=== PATIENT | female | born 1995 | race Asian ===

== ENCOUNTER 2023-05-13 06:16 | Inpatient (IN) | payer OTHER ==
[2023-05-13] MEDS ORDERED: CITRIC ACID/SODIUM CITRATE 30 ML UNIT-DOSE CUP PO ONE (06:45)
[2023-05-13] MEDS ORDERED: ELECTROLYTE-148 SOLN 500 ML IV ONE ×2 (06:45→08:18)
[2023-05-13 07:01] VITALS: BMI 26.9
[2023-05-13] MEDS ORDERED: ONDANSETRON 4 MG/2 ML VIAL IVPUSH PRN (07:43)
[2023-05-13] MEDS ORDERED: ACETAMINOPHEN 325 MG TABLET (FP) PO PRN ×2 (07:43→09:08)
[2023-05-13] MEDS ORDERED: morphine SULFATE/PF 1 MG/2 ML (2cc Syringe - QUVA) EP ONE (07:43)
[2023-05-13] MEDS ORDERED: ELECTROLYTE-148 SOLN 1,000 ML IV SCH ×2 (07:45→08:30)
[2023-05-13] MEDS ORDERED: ceFAZolin SODIUM 1 GM VIAL ONE (07:50)
[2023-05-13] MEDS ORDERED: SODIUM CHLORIDE 0.9% P/F 10 ML VIAL IJ ONE (07:50)
[2023-05-13] MEDS ORDERED: OXYTOCIN 10 UNITS/ML VIAL ONE ×2 (08:26→08:32)
[2023-05-13] MEDS ORDERED: ONDANSETRON 4 MG/2 ML VIAL ONE (08:34)
[2023-05-13] MEDS ORDERED: IBUPROFEN 600 MG TABLET (FP) PO PRN (09:08)
[2023-05-13 09:13] LABS: CORD BASE EXCESS -0.8 mmol/L (0-2); CORD PCO2 45.6 mmHg (30-78); CORD pH 7.357 (7.14-7.44)
[2023-05-13] MEDS: OXYTOCIN 20 UNITS in 0.9% NS 20 UNIT/1,000 ML INFUS.BAG IV SCH ×2 (09:14→17:35)
[2023-05-13 09:17] LABS: CORD HCO3 25.9 mmHg (20-29); CORD PCO2 51.5 mmHg (30-78)
[2023-05-13 11:49] LABS: COCAINE, UR NEGATIVE (NEGATIVE); METHADONE, UR NEGATIVE (NEGATIVE); URINE AMPHETAMINES NEGATIVE (NEGATIVE)
[2023-05-13 11:50] LABS: OPIATES, URI NEGATIVE (NEGATIVE); PHENCYCLIDINE,URINE NEGATIVE (NEGATIVE); URINE BARBITURATES NEGATIVE (NEGATIVE); URINE BENZODIAZEPINES NEGATIVE (NEGATIVE)
[2023-05-13 18:11] VITALS: RESP 18
[2023-05-13] MEDS: IBUPROFEN 800 MG/8 ML IJ IVPB PRN (19:58)
[2023-05-13] MEDS ORDERED: oxyCODONE HCL 5 MG TABLET PO PRN (21:09)
[2023-05-14] MEDS: IBUPROFEN 800 MG/8 ML IJ IVPB PRN (03:45)
[2023-05-14 08:55] LABS: BASO % 0.2 % (0-2.0); EOS % 0.3 % (0-4.5); HEMATOCRIT 27.7 % (32.4-45.2); HEMOGLOBIN 9.3 GM/dL (10.7-15.3); LYMPH % 7.8 % (8-40); MCHC 33.5 g/dl (32.0-36.0); MEAN CELL VOLUME 92.7 fl (80-96); MEAN PLT VOLUME 7.9 fl (7.5-11.1); MONO % 6.8 % (3.8-10.2); NEUT % 84.9 % (42.8-82.8); PLATELET COUNT 151 10^3/uL (134-434); RBC 2.99 M/mm3 (3.60-5.2); RDW 13.3 % (11.6-15.6); WHITE BLOOD COUNT 13.8 K/mm3 (4.0-10.0)
[2023-05-14] MEDS ORDERED: BISACODYL 10 MG SUPP.RECT RC PRN (09:09)
[2023-05-14] MEDS: IBUPROFEN 600 MG TABLET (FP) PO PRN ×2 (13:57→22:05)
[2023-05-15] MEDS: IBUPROFEN 600 MG TABLET (FP) PO PRN ×3 (08:11→22:37)
[2023-05-16 08:13] LABS: BASO % 0.2 % (0-2.0); EOS % 1.6 % (0-4.5); HEMATOCRIT 25.4 % (32.4-45.2); LYMPH % 14.5 % (8-40); MCH 32.2 pg (25.7-33.7); MCHC 35.4 g/dl (32.0-36.0); MEAN PLT VOLUME 7.8 fl (7.5-11.1); MONO % 4.6 % (3.8-10.2); NEUT % 79.1 % (42.8-82.8); PLATELET COUNT 195 10^3/uL (134-434); RDW 13.1 % (11.6-15.6); WHITE BLOOD COUNT 8.6 K/mm3 (4.0-10.0)
[2023-05-16] MEDS: IBUPROFEN 600 MG TABLET (FP) PO PRN (08:21)
[2023-05-16 09:20] VITALS: BP 110/80; PULSE 80; TEMP 98
== END 2023-05-16 14:15 | disposition home or self-care (01) | DRG 540 ==
LOC: JLDR 06:16 → J3W 11:07
PROVIDERS: ADMIT Student in an Organized Health Care Education/Training Program; ATTEND Student in an Organized Health Care Education/Training Program
PROC: 10D00Z1 Extraction of Products of Conception, Low, Open Approach (ICD-10-PCS; principal; 2023-05-13)
DX: O34.211 Maternal care for low transverse scar from previous cesarean delivery (principal); N85.8 Other specified noninflammatory disorders of uterus; Z3A.39 39 weeks gestation of pregnancy; Z37.0 Single live birth
CPT/HCPCS: 36415; 36600; 80053; 80307; 81003; 82803; 85025; 85610; 86780; 86850; 86900; 86901; 88307-TC